=== PATIENT | male | born 1965 | race Caucasian/White ===

== ENCOUNTER 2017-04-23 16:56 | Emergency (ER) | payer SELFPAY ==
--- NOTE | 2017-04-23 17:32 | ERNOTE ---
Allergy Symptoms - ER Date of Service: 04/23/17 Presenting Symptoms: skin rash Time Seen by Provider: 04/23/17 17:21 Source: patient, family, RN notes reviewed Exam Limitations: no limitations Immunizations: IMMUNIZATION HX Immunizations Up to Date Yes Allergies/Adverse Reactions: Allergies clindamycin Allergy (Verified 04/23/17 17:06) Home Medications: HOME MEDICATIONS Penicillin V Potassium [Pen-Vee K] 500 mg PO Q8H #30 tab 04/23/17 [Last Taken Unknown] - History of Present Illness Narrative: Kirill is a 51-year-old male who presents to the emergency Department by private vehicle for an allergic reaction. He took clindamycin at 1600 along to his girlfriend. He was taking this for a "infected tooth." He then began experiencing a diffuse red macular rash that is pruritic. He has not taken anything for his symptoms prior to arrival. He has no prior history of any kind of allergic reactions. He denies any oropharyngeal swelling or any breathing difficulty. Treatment RELAY MECHANIC:: none Location skin rash/itching: Present: diffuse, "redness" Location swelling: Present: none Identified cause?: Yes Exposure: Present: antibiotic Prior Treament: Denies: recently seen, similar symptoms before Review of Systems - Review of Systems Constitutional: Absent: recent illness, fever, chills EYE: Present: no symptoms reported ENT: Absent: nose congestion, sore throat, throat swelling Respiratory: Absent: shortness of breath, cough, wheezing, stridor Cardiology: Present: no symptoms reported Gastrointestinal/Abdominal: Absent: nausea, vomiting Genitourinary: Present: no symptoms reported Musculoskeletal: Present: no symptoms reported Skin: Present: rash, change in color Neurological: Absent: headache, dizziness/light-headedness Endocrine: Present: no symptoms reported Hematologic/Lymphatic: Present: no symptoms reported Psych: Present: no symptoms reported - Patient's Past Medical History Patient History - Medical: No pertinent hx Patient History - Cardiac/Respiratory: No pertinent hx Patient History - Cancer: No Hx of Cancer Patient History - Surgical Procedures: Appendectomy, Other Patient History - Other: None - Social History Living Situations: significant other Psych History: No pertinent hx Smoking Status: Current every day smoker Alcohol Use: none Drug Use: marijuana - Immunizations Immunizations Up to Date: Yes Physical Exam - Physical Exam General Appearance: Present: wd/wn, alert, no apparent distress Ears, Nose, Throat: Present: normal except - - Dental decay. Absent: pharyngeal erythema, pharyngeal swelling Neck: Present: normal inspection, nontender, supple Respiratory: Present: no respiratory distress, normal breath sounds, no accessory muscle use, lungs clear Cardiovascular/Chest: Present: regular rate, rhythm, no murmur Extremity Exam: Present: normal inspection, normal range of motion, no edema Neurological Exam: Present: alert, oriented, normal mood/affect, no motor/ sensory deficits Skin Exam: Present: warm/dry, skin rash - Diffuse erythematous macular eruption over entire body ED Progress - Vital Signs Patient's Vital Signs:: I have reviewed the patient's vital signs. Vital Signs: Vital Signs 04/23/17 17:00 Temperature 36.9 C Pulse Rate 88 Respiratory 16 Rate Blood Pressure 114/68 O2 Sat by Pulse 99 Oximetry - Progress/Reassessment Chief Complaint: Allergic Reaction Progress:: Improved Departure Clinical Impression: Dental caries Allergic reaction caused by a drug Qualifiers: Encounter type: initial encounter Qualified Code(s): T78.40XA - Allergy, unspecified, initial encounter - Departure Disposition: Home Follow Up Needed Condition: Good Instructions: Drug Allergy, [id number] Additional Instructions: OK to take Benadryl every 6 hours as needed for itching/rash Wait until tomorrow to start new antibiotic See a dentist Do not take Clindamycin again Prescriptions: Penicillin V Potassium [Pen-Vee K] 500 mg PO Q8H #30 tab
[2017-04-23] MEDS ORDERED: diphenhydrAMINE HCL 50 MG CAPSULE PO ONE (17:55)
[2017-04-23] MEDS: diphenhydrAMINE HCL 50 MG CAPSULE PO ONE (17:58)
[2017-04-23 18:00] VITALS: BP 113/73
== END 2017-04-23 18:11 | disposition home or self-care (01) ==
LOC: ER 16:56
DX: T78.40XA Allergy, unspecified, initial encounter (principal); R21 Rash and other nonspecific skin eruption; K02.9 Dental caries, unspecified; F17.200 Nicotine dependence, unspecified, uncomplicated

== ENCOUNTER 2017-04-25 17:33 | Emergency (ER) | payer SELFPAY ==
--- NOTE | 2017-04-25 18:17 | ERNOTE ---
Trauma/Assault HPI - Narrative Date of Service: 04/25/17 - General Stated Complaint: FALL HIP PAIN Time Seen by Provider: 04/25/17 17:41 Source: patient, family Exam Limitations: no limitations - Immun/Allergies/Home Medications Immunizations: IMMUNIZATION HX Immunizations Up to Date Yes History of Influenza Vaccine No Allergies/Adverse Reactions: Allergies clindamycin Allergy (Verified 04/25/17 17:38) Home Medications: HOME MEDICATIONS Penicillin V Potassium [Pen-Vee K] 500 mg PO Q8H #30 tab 04/23/17 [Last Taken Unknown] - History of Present Illness Narrative: patient moving heavy rocks and fell on right hip Location Occurred: Reports: home Pain Location: Reports: pelvis, lower extremity Method of Injury: Reports: fall Severity: moderate Modifying Factors - (Improves): Reports: other - nothing Loss of Consciousness: Reports: no loss of consciousness Associated Symptoms - Trauma: Reports: denies symptoms Review of Systems - Review of Systems Constitutional: Present: no symptoms reported EYE: Present: no symptoms reported ENT: Present: no symptoms reported Respiratory: Present: no symptoms reported Cardiology: Present: no symptoms reported Gastrointestinal/Abdominal: Present: no symptoms reported Genitourinary: Present: no symptoms reported Musculoskeletal: Present: joint pain, joint swelling, other - pain in right hip Skin: Present: no symptoms reported Neurological: Present: no symptoms reported Endocrine: Present: no symptoms reported Hematologic/Lymphatic: Present: no symptoms reported Psych: Present: no symptoms reported All Other Systems: All systems neg except as marked - Patient's Past Medical History Patient History - Medical: No pertinent hx Patient History - Cardiac/Respiratory: No pertinent hx Patient History - Cancer: No Hx of Cancer Patient History - Surgical Procedures: Appendectomy, Other Patient History - Other: None - Social History Living Situations: significant other Psych History: No pertinent hx Smoking Status: Current every day smoker Have you smoked in the past 12 months: Yes Do you dip or chew tobacco: No Patient requests Smoking Cessation Consult: No Initiate information on Smoking Cessation: No Alcohol Use: none Drug Use: marijuana - Immunizations Immunizations Up to Date: Yes History of Influenza Vaccine: No Physical Exam - Physical Exam General Appearance: Present: alert, mild distress Head Exam: Present: normal inspection, no evidence of injury Eye Exam: Normal inspection: bilateral, PERRL: bilateral, EOMI: bilateral Ears, Nose, Throat: Present: normal ENT inspection Neck: Present: normal inspection, nontender Respiratory: Present: no respiratory distress, normal breath sounds, no accessory muscle use, chest nontender Cardiovascular/Chest: Present: regular rate, rhythm, no murmur, normal peripheral pulses Peripheral Pulses: N=norm/S=strong/W=weak/B=bound/A=absent: Carotid (R): Normal , Carotid (L): Normal, Radial (R): Normal, Radial (L): Normal, Femoral (R): Normal, Femoral (L): Normal, Dorsalis-pedis (R): Normal, Dorsalis-pedis (L): Normal Gastrointestinal/Abdominal: Present: normal bowel sounds, nontender, nondistended, soft, no organomegaly Back Exam: Present: normal inspection, normal range of motion, no CVA tenderness , no vertebral tenderness Extremity Exam: Present: joint swelling, other - pain over right hip Neurological Exam: Present: alert, oriented, normal mood/affect, no motor/ sensory deficits DTR: N=norm/NB=norm/brisk/A=abs/DD=dull/dimin/HC=hyperactive: Bicep (R): Normal , Bicep (L): Normal, Tricep (R): Normal, Tricep (L): Normal, Knee (R): Normal, Knee (L): Normal, Ankle (R): Normal, Ankle (L): Normal Skin Exam: Present: normal color, warm/dry ED Progress - Vital Signs Vital Signs: Vital Signs 04/25/17 04/25/17 17:36 17:46 Temperature 36.9 C Pulse Rate 59 L 62 Respiratory 14 11 L Rate Blood Pressure 161/89 133/91 O2 Sat by Pulse 98 99 Oximetry - X-Ray X-Ray #1 X-Ray: hip - no apparent fracture of right hip and pelvis - Progress/Reassessment Chief Complaint: Fall Progress:: Unchanged - Transfer of Care Expected Disposition: Discharge Departure Clinical Impression: Contusion - Departure Disposition: Home self-care Condition: Fair Instructions: Contusion, [id number]
[2017-04-25 18:25] VITALS: BP 147/89
== END 2017-04-25 18:23 | disposition home or self-care (01) ==
LOC: ER 17:33
DX: S70.01XA Contusion of right hip, initial encounter (principal); W19.XXXA Unspecified fall, initial encounter; F17.200 Nicotine dependence, unspecified, uncomplicated